=== PATIENT | male | born 1980 | race Caucasian/White ===

== ENCOUNTER 2023-08-18 14:46 | Emergency (ER) | payer SELFPAY ==
[2023-08-18 14:47] VITALS: BP 166/110
[2023-08-18 15:20] VITALS: BMI 36.6
[2023-08-18 15:33] VITALS: BP 134/105
[2023-08-18] MEDS: DILAUDID 1 MG IV (15:47)
--- NOTE | 2023-08-18 15:47 | ED.GENMED ---
History of Present Illness
General
Chief Complaint: Fall
Source: patient and spouse
Time Seen by Provider: 08/18/23 15:37
History of Present Illness
History of Present Illness:
43-year-old male presents to the emergency room complaining of chest and back pain after falling off of a roof. Patient was working on a roof and inadvertently stepped on an unsupported piece causing him to slide and fall off the roof. He landed
on his right side and delmi material then slid off and landed on top of him. He denies any head strike or head injury. He did not lose consciousness. Patient rates his pain a 10 out of 10 with any movement. Patient states has a history of a
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 No fever, chills, nausea or vomiting. He does not take any prescription medications. He denies any previous back or abdominal surgery. He denies neck pain. He denies
shortness of breath.
Phy Exam
Physical Exam
Physical Exam:
General: Awake, Alert, Oriented X3. Patient peers very uncomfortable
Vitals: unremarkable
Head: Atraumatic
Eyes: Pupils equal, EOMI
Throat: Airway intact, no exudates
Neck: Trachea midline, no tenderness to palpation over the cervical spine
Chest: Pain with palpation right thorax
Lungs: Clear and equal b/l
Heart: Regular rate, no murmurs
Abd: Soft, Nontender, No pulsatile mass
Back:
Neuro: Muscle strength intact, sensation intact
Skin: Warm, dry, no rash
Extremities: pulses equal b/l, no edema
Course
Orders/Labs/Results
Orders:
Orders
08/18/23 14:51
CR Ribs-right 3 Vw W/pa Chest* Urgent
Reason For Exam: pain
08/18/23 15:43
CT Chest/abd/pel W Iv Cont Urgent
Comment:
Reason For Exam: fall from roff
08/18/23 15:44
Cardiac Monitoring- Treatment ONCE
08/18/23 15:45
0.9% Sodium Chloride 500 ml [Nss] 500 ml IV BOLUS
HYDROmorphone [Dilaudid] 1 mg IV NOW STA
08/18/23 15:52
Type+Screen Urgent
Basic Metabolic Panel Urgent
Complete Blood Count/No Diff Urgent
08/18/23 17:03
Ketorolac [Toradol] 30 mg IV NOW STA
Abnormal Lab Results
08/18/23
15:52
WBC 11.3 H 10^3/uL
(4.8-10.8)
BUN 21 H mg/dl
(9-20)
08/18/23 15:52
08/18/23 15:52
Vital Signs
Initial and Last Documented VS:
Initial Vital Signs
Temp Pulse Resp BP Pulse Ox
98.3 F 104 18 166/110 99
08/18/23 14:47 08/18/23 14:47 08/18/23 14:47 08/18/23 14:47 08/18/23 14:47
Last Documented Vital Signs
Temp Pulse Resp BP Pulse Ox
98.3 F 75 15 136/77 98
08/18/23 14:47 08/18/23 17:15 08/18/23 17:15 08/18/23 17:00 08/18/23 17:15
MDM/Problems Addressed
Differential Diagnosis Includes:
Rib fractures, pneumothorax, lumbar spine fracture, intra-abdominal visceral injury
MDM/Problems Addressed:
Patient presents after fall from a roof. Imaging shows no evidence of fracture or intra-abdominal injury. No rib fracture or pneumothorax either. Patient received analgesia with some improvement. Pain seems muscular in nature. Patient stable
for discharge home and outpatient follow-up.
*Radiology
Radiology exam reviewed: radiology read reviewed
*Pulse Oximetry
Patient hypoxic: no
*Critical Care Note
Total Time (30-74mins, 75-104mins- exclusive of procedures): Not Applicable
Patient Management
Social determinants of health affecting care: Strong social support
ED Attending Note
-
Portions of this chart may have been created with voice recognition software.� Occasional wrong word or��sound alike� substitutions may have occurred due to the inherent limitations of voice recognition software.
Discharge Plan
Departure
Patient Disposition: Home (Routine Discharge)
Date of Disposition: 08/18/23
Time of Disposition: 17:56
Patient with high blood pressure during this ER visit?: Yes
Condition: Good
Discharge Problem:
Contusion of multiple sites, Acute lumbosacral myofascial strain
Instructions: Contusion (DC), Low Back Pain ED
Prescriptions:
New
oxycodone 5 mg tablet
5 mg PO Q6H PRN (Reason: Pain) Qty: 12 0RF
metaxalone 800 mg tablet
800 mg PO TID PRN (Reason: muscle pain) Qty: 20 0RF
Referrals:
NONE,* [Family Provider] -
Stand Alone Forms: Return to Work
Activity Restrictions/Additional Instructions:
Fortunately your imaging studies show no evidence for serious injury. The radiologist did not identify any rib fractures, spine fractures or injuries to your organs. I believe the significant pain you are having is related to muscle strain and
contusions. I recommend taking 650 of Tylenol and 600 of ibuprofen together every 6 hours. If you need further medication for pain I have sent a prescription for oxycodone which can take 1 tablet every 6 hours as needed. Also sent a prescription
for Skelaxin which is a muscle relaxant which he can take 1 every 8 hours as needed. Both these medications can cause sedation and you cannot drive while taking them.
Interventions
Interventions:
*Risk Screen - Suicide Last Done: 08/18/23 14:47
*General Assessment Last Done: 08/18/23 14:47
*Neglect/Abuse Screening Last Done: 08/18/23 14:47
ED- Fall Risk Assessment Last Done: 08/18/23 15:20
*ED COVID-19 Vaccine History Last Done: 08/18/23 14:47
*Nursing Disposition Last Done: 08/18/23 18:10
ED-Musculoskeletal Assessment Last Done: 08/18/23 15:20
ED- Neurological Assessment Last Done: 08/18/23 15:20
ED-Skin Assessment Last Done: 08/18/23 15:20
Discharge Date and Time
Discharge Date/Time: 08/18/23 18:10
Print Language: [id number]
[2023-08-18] MEDS: NSS 500 IV (15:50)
[2023-08-18 16:00] VITALS: BP 134/91
[2023-08-18 16:02] LABS: Hematocrit 45.1 % (39.0-52.0); Hemoglobin 15.2 g/dL (13.0-18.0); Mean Corp Hgb Conc. 33.7 g/dL (33.0-37.0); Mean Corpuscular Hgb 29.3 pg (27.0-31.0); Mean Corpuscular Volume 87.1 fL (80.0-94.0); Mean Platelet Volume 9.5 fL (7.4-10.4); Platelet Count 328 10^3/uL (130-400); Red Blood Cell Count 5.18 10^6/uL (4.70-6.10); Red Cell Dist. Width 12.7 % (11.5-14.5); White Blood Cell Count 11.3 10^3/uL (4.8-10.8)
[2023-08-18 16:13] LABS: Blood Urea Nitrogen 21 mg/dl (9-20); Calcium 10.1 mg/dl (8.4-10.2); Carbon Dioxide 23 mmol/L (22-30); Chloride 103 mmol/L (98-107); Estimated Creatinine Clearance 121 ml/min; Glucose 93 mg/dl (70-99); Potassium 4.4 mmol/L (3.5-5.1); Sodium 137 mmol/L (135-145); eGFR > 60.00
[2023-08-18 16:29] VITALS: BP 130/80
[2023-08-18 17:00] VITALS: BP 136/77
[2023-08-18] MEDS: TORADOL 30 MG IV (17:05)
== END 2023-08-18 18:10 | disposition home or self-care (01) ==
LOC: EMR 14:46
PROVIDERS: EMERGENCY PHYSICIAN Emergency Medicine
DX: S39.012A Strain of muscle, fascia and tendon of lower back, initial encounter (principal); R07.81 Pleurodynia; T14.8XXA Other injury of unspecified body region, initial encounter; W13.2XXA Fall from, out of or through roof, initial encounter; W20.8XXA Other cause of strike by thrown, projected or falling object, initial encounter; Y93.H3 Activity, building and construction; R03.0 Elevated blood-pressure reading, without diagnosis of hypertension; M51.26 Other intervertebral disc displacement, lumbar region; I45.6 Pre-excitation syndrome
CPT/HCPCS: 99284; 96361; 96374; 96375; 71101; 71260; 74177; 80048; 85027; 86850; 86900; 86901; Q9967